=== PATIENT | female | born 2000 | race Caucasian/White ===

== ENCOUNTER 2024-08-22 12:40 | Emergency (ER) | payer OTHER, MEDICAID, SELFPAY ==
[2024-08-22 12:43] VITALS: BMI 30.2
[2024-08-22 12:44] VITALS: BP 124/72; PULSE 69; RESP 19; TEMP 36.9; O2SAT 100
[2024-08-22 12:58] VITALS: PULSE 70; RESP 28; O2SAT 99; BMI 30.2
--- NOTE | 2024-08-22 13:14 | XR_ITS ---
Examination: CT brain head without contrast. 2-D sagittal coronal reconstructions Date and time of exam:August 22, 2024 1318 hours INDICATIONS: Syncopal episode with dizziness and fall today CTDI: vol (mGy):44.7 DLP: (mGycm):859 Technique: Multiple CT axial sections of the brain have been obtained, 5 mm slice thickness. Contrast has not been administered. 2-D sagittal, coronal reconstructions have been obtained Low dose protocols were performed. One or more of the following dose reduction techniques were used; automated exposure control, adjustment of the mA and/or KV according to patient size, use of iterative reconstruction technique. Findings: No significant ventricular enlargement. Intra-axial or extra-axial hemorrhage density is not seen. No mass effect or midline shift Basal cisterns are not remarkable. Fourth ventricle is midline. Cranial vault intact. Impression: Negative for acute hemorrhage, mass effect or midline shift
--- NOTE | 2024-08-22 13:14 | EKG_ITS ---
[facility] Test Date: 2024-08-22 Pat Name: SAURAV BRUNO Department: Room: - Gender: Female [employer] Worker: : 2000 Requested By: Bola Ivy (AZUL) Order Number: [id number] Reading MD: Bola Ivy ([employer]) Measurements Intervals Adger Rate: 73 P: 11 [place]: 139 QRS: 59 QRSD: 94 T: 14 QT: 365 QTc: 403 Interpretive Statements SINUS RHYTHM WITH SINUS ARRHYTHMIA INCOMPLETE RIGHT BUNDLE BRANCH BLOCK [90+ ms QRS DURATION, TERMINAL R IN V1/V2, 40+ ms S IN I/aVL/V4/V5/V6] NONSPECIFIC ST & T-WAVE ABNORMALITY No previous ECG available for comparison /[id number]/[email or web address]/[id number].pdf
[2024-08-22 14:00] LABS: Basophils # (Auto) 0.0 Thou/mm3 (0.0-0.2); Basophils % (Auto) 1 % (0-2.5); Eosinophils # (Auto) 0.1 Thou/mm3 (0.0-0.5); Eosinophils % (Auto) 2 % (0-10); Hematocrit 38.3 % (36.0-46.0); Hemoglobin 12.9 g/dL (12.0-16.0); Immature Granulocytes Auto 0.02 Thou/mm3 (0.00-0.00); Lymphocytes # (Auto) 2.2 Thou/mm3 (1.0-4.8); Lymphocytes % (Auto) 26 % (10-50); Mean Corpuscular HGB Conc 33.7 g/dl (31.0-37.0); Mean Corpuscular Hemoglobin 26.3 pg (25.0-35.0); Mean Corpuscular Volume 78 fL (80-100); Monocytes # (Auto) 0.4 Thou/mm3 (0.0-0.8); Monocytes % (Auto) 4 % (0-12); Neutrophils # (Auto) 5.6 Thou/mm3 (1.8-7.7); Neutrophils % (Auto) 67 % (37-80); Nucleated Red Blood Cell # 0.00 Thou/mm3 (0.00-0.00); Nucleated Red Blood Cell % 0 /100 WBC (0); Platelet Count 260 Thou/mm3 (140-440); RDW Standard Deviation 39.9 fL (36.4-46.3); Red Blood Count 4.91 Miln/mm3 (4.00-5.20); White Blood Count 8.3 Thou/mm3 (3.6-11.0)
[2024-08-22 14:16] LABS: Alanine Aminotransferase 13 U/L (10-49); Albumin, Serum 4.5 gm/dL (3.5-5.0); Albumin/Globulin Ratio 1.8 (1.2-2.2); Alkaline Phosphatase 66 U/L (46-116); Anion Gap 11 (7-16); Aspartate Amino Transferase 17 U/L (0-34); BUN/Creatinine Ratio 10 Ratio (12-20); Bilirubin,Total 0.7 mg/dL (0.3-1.2); Blood Urea Nitrogen 10 mg/dL (9-23); Calcium 9.5 mg/dL (8.3-10.6); Calcium (Corrected) 9.5 mg/dL (8.5-10.1); Carbon Dioxide 24.0 mMol/L (20.0-31.0); Chloride 110 mMol/L (98-107); Creatinine (Component) 1.0 mg/dL (0.6-1.3); Estimated Creatinine Clearance 77.2 mL/min (>60); Globulin 2.5 gm/dL (2.3-3.5); Glucose 159 mg/dL (74-106); Osmolality,Calculated 290 (275-295); Potassium 4.1 mMol/L (3.4-5.1); Sodium 145 mMol/L (136-145); Total Protein 7.0 gm/dL (5.7-8.2); Troponin I < 0.002 ng/mL (0.0-0.045); eGFR > 60 See Note
[2024-08-22 14:24] LABS: HCG,Qualitative Serum Negative
--- NOTE | 2024-08-22 14:50 | PC.NURSE ---
PT LEFT AMA. SHE DID NOT WANT TO WAIT UNTIL 1630 FOR NEXT LAB TEST. AMA FORM SIGNED.
--- NOTE | 2024-08-22 19:50 | PD.EDRME ---
Rapid Medical Screening Exam RME Arrival date/time: 08/22/24 12:40 24 yr old female presents for concerns for syncopal episode today Time Seen by Provider: 08/22/24 13:14 Vital signs: Vital Signs Temperature 98.5 F 08/22/24 12:44 Pulse Rate 69 08/22/24 12:44 Respiratory Rate 19 08/22/24 12:44 Blood Pressure 124/72 08/22/24 12:44 Pulse Oximetry (%) 100 08/22/24 12:44 Oxygen Delivery Method Room Air 08/22/24 12:44
== END 2024-08-22 14:50 | disposition left against medical advice (07) ==
LOC: SERX 14:06
PROVIDERS: Nurse Practitioner Primary Care; Emergency Provider Physician Assistant Medical; PCP Physician Assistant
DX: R55 Syncope and collapse (principal); R42 Dizziness and giddiness; I49.8 Other specified cardiac arrhythmias; I45.10 Unspecified right bundle-branch block; W19.XXXA Unspecified fall, initial encounter; Z53.29 Procedure and treatment not carried out because of patient's decision for other reasons
CPT/HCPCS: 36415; 70450; 80053; 84484; 84703; 85025; 93005; 99283